=== PATIENT | female | born 1970 | race African-American/Black ===

== ENCOUNTER → 2019-05-17 | Day surgery (SDC) | payer OTHER ==
--- NOTE | 2019-05-17 18:06 | OP ---
DATE OF OPERATION: 05/17/2019 PREOPERATIVE DIAGNOSIS: Abnormal mammography, right and left. POSTOPERATIVE DIAGNOSIS: Abnormal mammography, right and left. PROCEDURE PERFORMED: Bilateral stereotactic needle biopsy with clips. SURGEON: Soledad Anderson MD ANESTHESIA: Local. COMPLICATIONS: None. DISPOSITION: Stable at the end of the procedure. INDICATIONS FOR PROCEDURE: The patient underwent a routine screening mammography that noted loosely clustered calcifications in the upper outer right and left breasts. The radiologist felt these should be sampled for definitive diagnosis. The procedure was discussed with her and all her questions answered. DESCRIPTION OF PROCEDURE: The patient was brought to [facility] in [place], and laid prone on the [place] table. First the right breast biopsy was performed. Using a lateral approach, the calcifications in the upper outer right breast was identified. A sterile prep was obtained. A target was chosen. There was a positive stroke margin. Using Betadine and 1% lidocaine, a petite Suros device was used to take several cores from this area. The cores showed very calcifications; however, there were calcifications within the cores. Therefore, this was then sent to Pathology for permanent section. A clip was deployed in the area. Hemostasis was assured with direct pressure, and the incision was covered with Steri-Strips. Next, a CC approach was used for the left breast calcifications. Again, a target was chosen. revealed the calcifications to be there. The area was cleansed with Betadine and anesthetized with 1% lidocaine. A petite needle was used to take several cores from this area. The cores showed no calcification within them. Therefore, I repositioned and had to make another cut right next to this and took more samples from the area. However, again no calcifications came. However, the tissue was dense and it is possible that the specimen radiograph is unable to show the faint calcifications. At this point, since I had attempted this twice, my decision was to wait for the pathology, to see if the calcifications pathology and then decide what would be the next step. I explained this to the patient and she understood. A clip was deployed in the area. Hemostasis was assured with direct pressure, and the incision was closed with Steri-Strips. She tolerated the procedure well and left the breast imaging center in good condition. SOLEDAD ANDERSON M.D. [id number]
--- NOTE | 2019-05-18 15:07 | PATH ---
Surgical Pathology Report Patient Name: RICH WISE [facility]. Rec. #: [id number] /Age/Gender: 1970 (Age: 48) / F Account: [id number] Location: [facility] Taken: 05/17/2019 Received: 05/17/2019 Reported: 05/18/2019 Physicians: Soledad Costello M.D. Specimen(s) Received A: RIGHT BREAST SPECIMEN WITH CALCIFICATIONS B: RIGHT BREAST SPECIMEN WITHOUT CALCIFICATIONS C: LEFT BREAST SPECIMEN WITHOUT CALCIFICATIONS Clinical History Nonpalpable lesion Mammographic findings: Microcalcification, suspicious Final Diagnosis A. 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 CALCIFICATIONS ARE PRESENT IN ASSOCIATION WITH CYST CONTENTS. Note: E-Cadherin immunostain (performed at [facility]) is negative in the foci of ALH, which supports lobular phenotype. B. BREAST, RIGHT, WITHOUT CALCIFICATIONS, STEREOTACTIC BIOPSY: BENIGN BREAST TISSUE. C. 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 Electronically Signed Leann Wilson M.D. Gross Description A. Received in formalin labeled "right breast specimen with calcification," are 3 mcclain-yellow, cylindrical portions of fibroadipose tissue averaging 1.3 cm in length and 0.3 cm in diameter. The specimens are submitted in toto in one cassette. B. Received in formalin labeled "right breast specimen without calcifications," are 6 mcclain-yellow, cylindrical portions of fibroadipose tissue ranging from 0.5-1.2 cm in length and averaging 0.3 cm in diameter. The specimens are submitted in toto in one cassette. C. Received in formalin labeled "left breast without calcifications," is a 4.3 x 2.5 x 0.3 cm aggregate of multiple mcclain-yellow irregular to cylindrical portions of fibroadipose tissue admixed with blood clot. The formalin is filtered and the specimen is entirely submitted in 2 cassettes. Time to formalin fixation: 5 minutes Total formalin fixation time: Approximately 6 hours. /05/17/2019 saudi/05/17/2019
== END | disposition home or self-care (01) ==
LOC: FMAMMOTONE 10:01
PROVIDERS: ATTEND Surgery
PROC: 0HBV3ZX Excision of Bilateral Breast, Percutaneous Approach, Diagnostic (ICD-10-PCS; principal; 2019-05-17)
DX: N60.11 Diffuse cystic mastopathy of right breast (principal); N60.12 Diffuse cystic mastopathy of left breast; N60.31 Fibrosclerosis of right breast; N60.32 Fibrosclerosis of left breast; N60.81 Other benign mammary dysplasias of right breast; N60.82 Other benign mammary dysplasias of left breast; N60.89 Other benign mammary dysplasias of unspecified breast; N64.89 Other specified disorders of breast; R92.1 Mammographic calcification found on diagnostic imaging of breast
CPT/HCPCS: 19081; 76098-TC-FY; 87899; A4648

== ENCOUNTER 2019-08-25 08:23 | Day surgery (SDC) | payer OTHER ==
[2019-08-17 17:55] VITALS: BMI 21.7
[2019-08-25] MEDS ORDERED: PROPOFOL 20 ML ONE ×2 (13:10→13:54)
[2019-08-25] MEDS ORDERED: MIDAZOLAM HCL 2 MG/2 ML SINGLE DOSE VIAL ONE (13:10)
[2019-08-25] MEDS ORDERED: LIDOCAINE HCL/PF 2% SDV 5ML VIAL ONE (13:11)
[2019-08-25] MEDS ORDERED: ONDANSETRON 4 MG/2 ML VIAL ONE (13:11)
[2019-08-25] MEDS ORDERED: ceFAZolin SODIUM 1 GM VIAL ONE (13:11)
[2019-08-25] MEDS ORDERED: DEXAMETHASONE SOD PHOSPHATE 4 MG/1 ML VIAL ONE (13:11)
[2019-08-25] MEDS ORDERED: SODIUM CHLORIDE 0.9% P/F 10 ML VIAL IJ ONE (13:11)
[2019-08-25] MEDS ORDERED: ONDANSETRON 4 MG/2 ML VIAL IVPUSH PRN (13:19)
[2019-08-25] MEDS ORDERED: oxyCODONE HCL 5 MG TABLET PO PRN (13:19)
[2019-08-25] MEDS ORDERED: LACTATED RINGERS SOLUTION 1,000 ML IV SCH (13:30)
[2019-08-25] MEDS ORDERED: LIDOCAINE HCL 1%, 10 MG/ML (20ML VIAL) ID ONE (14:09)
[2019-08-25 15:39] VITALS: TEMP 98.2
[2019-08-25 16:26] VITALS: BP 131/73; PULSE 55
== END 2019-08-25 16:45 | disposition home or self-care (01) ==
LOC: JASU-SURG 08:23
PROVIDERS: ATTEND Surgery
PROC: 0HBT0ZZ Excision of Right Breast, Open Approach (ICD-10-PCS; principal; 2019-08-25 12:00)
DX: N60.91 Unspecified benign mammary dysplasia of right breast (principal); I10 Essential (primary) hypertension; Z86.73 Personal history of transient ischemic attack (TIA), and cerebral infarction without residual deficits
CPT/HCPCS: 19281; 76098-TC-FY; 88307-TC; 88342-TC; 94760

== ENCOUNTER → 2020-05-29 | Day surgery (SDC) | payer OTHER | END | disposition home or self-care (01) | LOC: FMAMMOTONE 10:10 | PROVIDERS: ATTEND Surgery | PROC: 0H9T3ZX Drainage of Right Breast, Percutaneous Approach, Diagnostic (ICD-10-PCS; principal; 2020-05-29) | DX: D24.1 Benign neoplasm of right breast (principal); N60.11 Diffuse cystic mastopathy of right breast | CPT/HCPCS: 19081; 76098-TC-FY; 87899; A4648 ==

== ENCOUNTER 2020-07-16 04:11 | Day surgery (SDC) | payer OTHER ==
[2020-07-12 13:45] VITALS: BMI 22.1
[2020-07-16] MEDS ORDERED: LIDOCAINE HCL 1%, 10 MG/ML (20ML VIAL) ONE (11:13)
[2020-07-16] MEDS ORDERED: PROPOFOL 20 ML ONE (13:18)
[2020-07-16] MEDS ORDERED: LIDOCAINE HCL/PF 2% SDV 5ML VIAL ONE (13:18)
[2020-07-16] MEDS ORDERED: MIDAZOLAM HCL 2 MG/2 ML SINGLE DOSE VIAL ONE (13:18)
[2020-07-16] MEDS ORDERED: ceFAZolin SODIUM 1 GM VIAL IVPB ONE (13:30)
[2020-07-16] MEDS ORDERED: SUCCINYLCHOLINE CHLORIDE 200 MG/10 ML SYRINGE ONE (13:36)
[2020-07-16] MEDS ORDERED: LIDOCAINE HCL 1%, 10 MG/ML (20ML VIAL) PNB ONE (14:00)
[2020-07-16] MEDS ORDERED: KETOROLAC TROMETHAMINE 30 MG/1 ML VIAL ONE (14:11)
[2020-07-16] MEDS ORDERED: oxyCODONE HCL 5 MG TABLET PO PRN (14:26)
[2020-07-16] MEDS ORDERED: ACETAMINOPHEN 500 MG TABLET (FP) PO PRN (14:26)
[2020-07-16] MEDS ORDERED: ONDANSETRON 4 MG/2 ML VIAL IVPUSH PRN (14:26)
[2020-07-16] MEDS ORDERED: LACTATED RINGERS SOLUTION 1,000 ML IV SCH (14:30)
[2020-07-16] MEDS ORDERED: oxyCODONE HCL 5 MG TABLET ONE (15:30)
[2020-07-16 16:08] VITALS: BP 157/57; PULSE 60; TEMP 98.7
== END 2020-07-16 16:00 | disposition home or self-care (01) ==
LOC: JASU-SURG 04:11
PROVIDERS: ATTEND Surgery
PROC: 0HBT0ZZ Excision of Right Breast, Open Approach (ICD-10-PCS; principal; 2020-07-16 12:00)
DX: D24.1 Benign neoplasm of right breast (principal)
CPT/HCPCS: 19281; 19282; 76098-TC-FY; 88307-TC; 88341-TC; 88342-TC; 94760